=== PATIENT | male | born 1975 | race Caucasian/White ===

== ENCOUNTER → 2017-06-26 09:24 | Outpatient (CLI) | payer OTHER, SELFPAY ==
--- NOTE | 2017-06-26 13:00 | VAS_PTH ---
PATIENT: FERMÍN SUNG LOC: [facility] U#:[id number] AGE/SX: 49/M ROOM: RE06/26/[address]: Dr. Moses Alba MD : 1975 BED: DIS: SPEC #: [id number] RECD: 06/26/17 19:10 STATUS: FIORELLAElmer MEHRDAD #: [id number] GELY: 06/26/17 13:[address]: Moses Alba DEPT: SURGICAL PATHOLOGY RECD BY: Alvaro Anaya Tissues: A - Vas deferens, NOS B - Vas deferens, NOS Procedures: Surgery Specimen Level II HEADER OPERATION: Bilateral partial vasectomy PRE-OP DIAGNOSIS: Sterilization TISSUE SUBMITTED: A ? Right vas deferens, B ? Left vas deferens MICROSCOPIC DIAGNOSIS A. Right vas deferens, segmental vasectomy: Complete cross-section of vas deferens with no pathologic change. B. Left vas deferens, segmental vasectomy: Complete cross-section of vas deferens with no pathologic change. AM:laura 06/30/17 MICROSCOPIC DESCRIPTION Slides are reviewed. GROSS DESCRIPTION A - Received is one container designated right vas deferens. The specimen consists of a cylindrical segment of pink-terrazas soft tissue. The fragment measures 1.3 cm in length and 0.2 cm in maximum diameter. Serial sections do not reveal gross lesions. The specimen is serially sectioned and totally submitted in one cassette. It will be bisected at the time of embedding. B - Received is one container designated left vas deferens. The specimen consists of a cylindrical segment of pink-terrazas soft tissue. The fragment measures 1 cm in length and 0.2 cm in maximum diameter. Serial sections do not reveal gross lesions. The specimen is serially sectioned and totally submitted in one cassette. It will be bisected at the time of embedding. / SJ:laura 06/27/17 TC:4 CPT: 11223 x2
== END ==
PROVIDERS: Visit Provider Surgery
DX: Z98.52 Vasectomy status (principal)
CPT/HCPCS: 88302

== ENCOUNTER → 2017-07-10 15:20 | Outpatient (CLI) | payer OTHER, SELFPAY ==
[2017-07-11 14:05] LABS: Semen Analysis Post Vas PRESENT
== END ==
PROVIDERS: Family Provider Family Medicine; PCP Family Medicine; Visit Provider Surgery
DX: Z30.2 Encounter for sterilization (principal)
CPT/HCPCS: 89321

== ENCOUNTER → 2017-08-06 13:13 | Outpatient (CLI) | payer OTHER, SELFPAY ==
[2017-08-06 18:43] LABS: Semen Analysis Post Vas ABSENT
== END ==
PROVIDERS: Family Provider Family Medicine; PCP Family Medicine; Visit Provider Surgery
DX: Z30.2 Encounter for sterilization (principal)
CPT/HCPCS: 89321

== ENCOUNTER → 2017-10-23 15:55 | Outpatient (CLI) | payer OTHER, SELFPAY ==
[2017-10-24 10:45] LABS: Semen Analysis Post Vas ABSENT
== END ==
PROVIDERS: Family Provider Family Medicine; PCP Family Medicine; Visit Provider Family Medicine
DX: Z30.2 Encounter for sterilization (principal)
CPT/HCPCS: 89321

== ENCOUNTER 2018-01-17 16:37 | Emergency (ER) | payer SELFPAY ==
[2018-01-17 16:39] VITALS: BP 138/90; PULSE 87; RESP 17; TEMP 36.9; O2SAT 99; BMI 25.0
--- NOTE | 2018-01-17 16:53 | ED.DCSUM_ITS ---
- ER Visit Summary Date of Service: 01/17/18 Chief Complaint: Left thigh laceration History of Present Illness: The patient is a 42 M laceration left thigh 15 minutes prior to arrival. Using a utility knife cutting carpet. He is on aspirin therapy. Bleeding controlled. Tetanus unknown. History of sutures in the past. Physical Examination: General: Alert and oriented ?3, no acute distress HEENT: Normocephalic, atraumatic. Moist mucosa membranes Neck: supple, nontender. Cardiovascular: Regular rate and rhythm, no murmurs Respiratory: Normal breath sounds, symmetric, no distress Abdomen: Soft, nontender, nondistended Extremities: Nontender, no edema, pulses intact ?4 Neuro: no focal neurological deficits. Skin: Left thigh, 2 cm vertical laceration to distal thigh, subcu exposure, no foreign bodies, no active bleeding. Test Results: [] Emergency Department Course and Treatment: Patient isolated laceration left thigh. Subcutaneous exposure. Tetanus updated. Laceration repaired with a total of 2, 4 oh horizontal sutures. Good approximation. Wound care discussed. Follow-up with PCP for suture removal. Treatment Plan: [] Disposition: Discharge Impression: 1. Left thigh laceration 2. Tetanus update This note was generated with Panel[employer] dictation software. It may contain incorrect words, spelling, and punctuation that were not noted in review of the chart prior to signing ED Disposition - Plan for ED Patient: Disposition: Home or Assisted Living Chief Complaint: Laceration Diagnosis: Laceration of left thigh without complication, Tetanus toxoid vaccination administered at current visit Instructions: ED Laceration All Referrals: Issa Alba III, MD [Primary Care Provider] - 10-14 Days suture removal
[2018-01-17] MEDS: Diphth,Pertuss(Acell),Tet Vac 0.5 ML Vial IM (17:27)
== END 2018-01-17 17:39 | disposition home or self-care (01) ==
PROVIDERS: Emergency Provider Emergency Medicine; Family Provider Family Medicine; PCP Family Medicine
DX: S71.112A Laceration without foreign body, left thigh, initial encounter (principal); W26.0XXA Contact with knife, initial encounter; Y93.89 Activity, other specified; Y92.9 Unspecified place or not applicable; Y99.9 Unspecified external cause status; Z23 Encounter for immunization; Z79.82 Long term (current) use of aspirin
CPT/HCPCS: 12001; 90471; 90715; 99282

== ENCOUNTER → 2022-08-28 | Outpatient (CLI) | payer OTHER, SELFPAY ==
[2022-08-28 08:32] LABS: Mucous, Urine 0 SEEN /hpf (<or=2+); Red Blood Cells-Urine 0 SEEN /hpf (0-5); White Blood Cells 0 SEEN /hpf (0-5)
[2022-08-28 12:18] LABS: Erythrocyte Sedimentation Rate 2 mm/hr (0-20)
[2022-08-28 12:23] LABS: Color, Urine Yellow (Yellow); Glucose, Dipstick Normal (Normal); Ketone-Dipstick Negative (Negative); Leukocyte Esterase-Dipstick Negative /ul (Negative); Nitrite-Dipstick Negative (Negative); Occult Blood-Urine Negative /ul (Negative); Protein-Dipstick Negative (Negative); Specific Gravity, Urine 1.015 (1.002-1.030); Urine Bilirubin Dipstick Negative (Negative); Urine Clarity Sl. Cloudy (Clear); Urine Urobilinogen Normal (Normal)
[2022-08-28 12:29] LABS: Bacteria 1+ /hpf (None Seen); Squamous Epithelial Cells - UA 0-5 SEEN /hpf (0-5)
[2022-08-28 12:35] LABS: ALB/GLOB Ratio 1.1 RATIO (0.9-2.4); AST(SGOT) 15 U/L (15-37); Alanine Aminotransfer ALT/SGPT 26 U/L (16-61); Alkaline Phosphatase 75 U/L (45-117); Anion Gap 4 (5-15); BUN 16 mg/dL (7-18); BUN/Creat Ratio 18.5 RATIO (10-20); CRP < 2.90 mg/L (0.0-3.0); Calcium,Total 8.7 mg/dL (8.5-10.1); Chloride 106 mmol/L (98-107); Cholesterol 193 mg/dL (200); Creatinine, Serum 0.87 mg/dL (0.70-1.30); EST Glomerular Filtration Rate 101 mL/min (>60); Est Glom Filt Rate - Afr Amer 122 mL/min (>60); Globulin 3.8 g/dL (2.2-4.2); Glucose 101 mg/dL (74-106); High Density Lipoprotein 41 mg/dL; PSA,Total- Diagnostic 0.41 ng/mL (0.0-4.0); Potassium 4.3 mmol/L (3.5-5.1); Protein, Total 7.8 g/dL (6.4-8.2); Rheumatoid Factor < 10.0 IU/mL (<15); Sodium Level 137 mmol/L (136-145); Triglycerides 151 mg/dL; Very Low Density Lipoprotein 30 mg/dL (5-40)
[2022-08-28 12:39] LABS: Absolute Lymphocyte Count 2.61 X10^3/uL (0.83-4.51); Absolute Neutrophil Count 2.9 X10^3/uL (2.0-7.7); Basophil# 0.09 X10^3/uL; Basophil% 1.3 % (0-1); Eosinophil# 0.53 X10^3/uL; Eosinophils% 7.9 % (0-5); Hematocrit 45.4 % (40-54); Hemoglobin 14.5 g/dL (13.0-16.5); Lymphocyte # 2.61 X10^3/ul (0.83-4.51); Mean Corp Hgb Conc 31.9 g/dL (32-36); Mean Corpuscular Hgb 29.6 pg (27.0-32.0); Mean Corpuscular Volume 92.7 fL (80-94); Mean Platelet Vol. 10.2 fl (6.2-12.0); Monocyte# 0.56 X10^3/uL; Monocyte% 8.4 % (0-10); NRBC Flagged by Analyzer 0 % (0-5); Neutrophil # 2.88 X10^3/uL (2.7-7.7); Neutrophil % 43.1 % (47-70); Platelet Count 269 K/mm3 (150-450); RBC Distribution Width CV 12.8 % (11.6-14.6); RBC Distribution Width SD 43.9 fl (35.1-43.9); White Blood Count 6.7 K/mm3 (4.4-11.0)
[2022-08-29 12:09] LABS: CCP IgG Antibodies 3 units (0-19)
[2022-08-30 13:08] LABS: Anti-Centromere B Ab <0.2 AI (0.0-0.9); Anti-Chromatin <0.2 AI (0.0-0.9); Anti-Jo <0.2 AI (0.0-0.9); Anti-Nuclear Antibody Test Negative (.); Anti-Scleroderma-70 AB <0.2 AI (0.0-0.9); Anti-dsDNA Ab <1 IU/mL (0-9); RNP Ab <0.2 AI (0.0-0.9); SJOGREN'S Anti-SS-A test < 0.2 AI (0.0-0.9); SJOGREN'S Anti-SS-B test < 0.2 AI (0.0-0.9); Smith Ab <0.2 AI (0.0-0.9)
== END | disposition home or self-care (01) ==
PROVIDERS: PCP Internal Medicine; Referring Provider Internal Medicine; Visit Provider Internal Medicine
DX: M25.50 Pain in unspecified joint (principal); Z13.6 Encounter for screening for cardiovascular disorders; R10.31 Right lower quadrant pain
CPT/HCPCS: 36415; 80053; 80061; 81001; 84153; 85025; 85652; 86038; 86140; 86200; 86225; 86235; 86431

== ENCOUNTER 2022-10-04 09:50 | Day surgery (SDC) | payer OTHER, SELFPAY ==
[2022-10-04] VITALS (7 sets, daily range): BP systolic 105–119; BP diastolic 65–78; PULSE 71–74; RESP 16; TEMP 36.1–36.8; O2SAT 99–100; BMI 22.1
[2022-10-04] MEDS: Lactated Ringers 1,000 ML 15 ML IV (10:12)
--- NOTE | 2022-10-04 10:31 | PCM.HP.BLA ---
History and Physical Date of Admission: 10/04/22 Visit Reasons:?Abdominal Pain/C-Scope Chief Complaint: abd pain/c-scope Allergies No Known Allergies Allergy (Verified 09/19/22 08:25) Medications acetaminophen 325 mg capsule (Tylenol) 325 mg PO ONCE PRN 08/27/22 [History Confirmed 09/19/22] diclofenac sodium 75 mg tablet,delayed release 75 mg PO BID 08/27/22 [History Confirmed 09/19/22] ibuprofen 200 mg tablet 200 mg PO Q6H PRN 08/27/22 [History Confirmed 09/19/22] PFSH Medical History? Acute maxillary sinusitis, unspecified Back pain Hearing loss Knee pain Shoulder pain Surgical History? Status post vasectomy Family History?(Updated 08/27/22 @ 15:[address] Brandy Johnson MD) Father CHF (congestive heart failure)Grandfather Myocardial infarction Heart diseaseGrandfather Heart diseaseOther Diabetes Social History?(Updated 08/27/22 @ 16:[address] Brandy Johnson MD) household members:? spouse current occupational status:? 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 Former smoker quit date: 04/14/13 pack-years: 23 Electronic Cigarette Use:? not used alcohol intake:? current alcohol intake frequency: a few times a week Alcohol type: hard liquor substance use type:? marijuana what type of physical activity do you participate in:? running and weight training frequency:? 3-4 times per week do you feel safe at home:? Yes HPI HPI HPI: 47-year-old gentleman is being referred by Dr. Karishma Johnson for surgical consultation regarding right groin pain.? Written compromise surgical consult and recommendations will return to her.? By report the patient's had chronic right groin pain.? He has multiple other issues of musculoskeletal joint complaints.? I have assisted him previously on June 26, 2017 with a bilateral partial vasectomy.? Apparently the patient's previously had a diagnosis of right iliopsoas bursitis. I have information July 25, 2020 report from [facility] CT scan abdomen pelvis that demonstrated right iliopsoas bursitis.? Mild bilateral hip degenerative diseases.? A left hepatic cyst.? Also on July 17, 2020 he had had a scrotal ultrasound.? This demonstrated a 5 x 4 epididymal cyst on the right.? Small hydrocele present.? No varicoceles.? On the left a small hydrocele present with no varicoceles. The patient states that 2 years ago prior to that intervention he was pulling a tarp and was at an angle and immediately felt a discomfort in the right groin.? His major concern today is that he has been having ongoing right groin pain.? He will wake up in the morning it will be fine and after 2 hours of work it will start to ache.? He thinks that his right testicle tends to elevate when it is uncomfortable. 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 He has never had a colonoscopy.? He notes some right lower quadrant tenderness but is not sure whether that simply radiating from the groin which is what he believes. He used to be a cigarette smoker but he did stop. ROS General General: No weight change, appetite, fatigue, colon cancer, breast cancer or weakness HEENT HEENT: No difficulty swallowing, eye injury, eye surgery, swollen glands or hoarseness Endo Endocrine: No thyroid disease, diabetes mellitus, thyroid cancer, Hair loss, heat intolerance or cold intolerance Skin Skin: No rash or changing moles Musc Musculoskeletal: Yes arthritis; No back problems, rheumatoid arthritis, gout or joint pain Cardio Cardiovascular: No murmur, pacemaker, heart disease, atrial fibrillation, high blood pressure, heart attack, heart stent, palpitations, shortness of breat with exertion or chest pain Psych Psychiatric: No depression, anxiety or hearing voices Resp Respiratory: No shortness of breath, No sleep apnea, No cough, No COPD, No asthma, No emphysema and No wheezing Gastro Gastrointestinal: Yes abdominal pain, No nausea or vomiting, No diarrhea, No constipation, No blood in stool, No acid reflux, No hemorrhoids, No ulcers, No gallbladder problem and No black,tarry stools Ermias Hematologic: No blood thinners, No blood disorders, No bleeding, No anemia and No blood clots Neuro Neurologic: No system reviewed and no additional complaints, except as documented, No as per HPI, No abnormal gait, No abnormal hearing, No abnormal movements, No abnormal speech, No behavioral changes, No burning sensations, No confusion, No convulsions, No disequilibrium, No dizziness, No localized weakness, No frequent falls, No headache(s), No lack of coordination, No loss of vision, No memory loss, No numbness, No other visual disturbances, No radicular pain, No restless legs, No sensory deficit, No syncope, No tingling, No tremor(s), No weakness and No other Exam Const General: cooperative, healthy appearing, comfortable and no acute distress Nutritional Appearance: average body habitus [facility] Head: normal to inspection Eyes General: appearance normal, both eyes and all related structures Neck Neck: normal visual inspection Chest Chest palpation & inspection: normal inspection of the chest Resp Effort & Inspection: normal respiratory effort Auscultation: clear to auscultation bilaterally Cardio Rate: regular rate Rhythm: regular rhythm GI Inspection: normal to inspection Palpation: soft and no hepatosplenomegaly Other: Soft, scaphoid, mild tenderness in the right lower quadrant, difficult to appreciate whether this is radiating from the groin.? Normal bowel sounds Other: With the patient standing there is soft tissue fullness bulging of the right groin as compared to the left.? Right testicle seems slightly enlarged. Left testicle without mass.? Absolutely solid left groin with no give Right testicle slightly tender but without mass.? There is evidence of a right inguinal hernia which bulges with straining.? The patient has some mild tenderness in that area as well. Neuro General: patient alert, patient awake and patient oriented x3 Extrem General: no calf tenderness Psych Appearance: grossly normal Assessment and Plan Assessment and Plan (1) Inguinal hernia of right side without obstruction or gangrene: ?Status:?Acute (2) Screening for intestinal cancer: ?Status:?Acute ?Plan: I recommended the patient a screening colonoscopy with possible biopsy or polypectomy as indicated.? He has some mild right lower quadrant tenderness but I think this is radiation from the groin.? I have discussed with him the technique, benefit, risk, alternatives.? He has had an opportunity to ask and have questions answered.? We will schedule and proceed as noted.? I would like to have this accomplished prior to proceeding with right inguinal hernia repair. On visual inspection and clinical exam I do concur with the patient that he has a right inguinal hernia.? He is very physically active.? I propose for him a laparoscopic right inguinal hernia repair with mesh and in detail discussed technique benefit risk complications alternatives.? Clearly he is very active.? Whether he could have a residual component of bursitis or degenerative joint symptoms as well's difficult to decipher.? The patient has been made aware that I do clearly believe that he has an inguinal hernia and that I would anticipate majority relief of his symptoms though certainly cannot proclaim that all symptoms will be resolved. He has had an opportunity to ask and have questions answered.? I have instructed him we will need to have 2 weeks off of work minimum from the hernia repair and then considered light duty subsequent to that.? He is aware that we will need to see him in postoperative follow-up in the office prior to his returning to work. Copy: Dr. Karishma Alba M.D., F.A.C.S. I have examined the patient and the H&P has been reviewed. There are no clinical changes since date of exam. Moses Alba M.D., F.A.C.S.
--- NOTE | 2022-10-04 11:00 | COLBX_PTH ---
PATIENT: FERMÍN SUNG LOC: [facility] U#:[id number] AGE/SX: 47/M ROOM: RE10/04/[address]: Dr. Moses Alba MD : 1975 BED: DIS: 10/04/2022 SPEC #: [id number] RECD: 10/04/22 13:14 STATUS: SIN REChristina #: [id number] GELY: 10/04/22 11:[address]: Moses Alba DEPT: SURGICAL PATHOLOGY RECD BY: Michelle Taylor ENTERED: 10/04/22 13:36 SP TYPE: COLON BX OTHR DR: Dr. Brandy Johnson MD Tissues: A - Transverse colon B - Sigmoid colon biopsy C - Sigmoid colon biopsy D - Sigmoid colon biopsy E - Sigmoid colon biopsy F - Rectum, NOS Procedures: Surgery Specimen Level IV HEADER OPERATION: Colonoscopy with polypectomy (MAC) PRE-OP DIAGNOSIS: Screening TISSUE SUBMITTED: A - Mid transverse polyp biopsy, B - Distal sigmoid polyp #1, C - Distal sigmoid polyps #2, D - Distal sigmoid polyps #3, E - Distal sigmoid polyp #4, F - Proximal rectal polyp MICROSCOPIC DIAGNOSIS A. Mid transverse colon polyp, biopsy: Fragments of tubular adenoma. B. Distal sigmoid polyp #1, polypectomy: Fragments of hyperplastic polyp. C. Distal sigmoid polyps #2, polypectomy: Tubular adenoma. Hyperplastic polyp. D. Distal sigmoid polyps #3, polypectomy: Hyperplastic polyp. E. Distal sigmoid polyps #4, polypectomy: Hyperplastic polyp. F. Proximal rectal polyp, polypectomy: Fragments of hyperplastic polyp. SJ:laura 10/07/2022 MICROSCOPIC DESCRIPTION Slides are reviewed. GROSS DESCRIPTION A - Received in fixative is one container labeled with the patient's name and designated mid transverse polyp. The specimen consists of multiple irregular fragments of light terrazas soft tissue that in aggregate measure 0.7 x 0.5 x 0.1 cm. The specimen is totally submitted in one cassette. B - Received in fixative is one container labeled with the patient's name and designated distal sigmoid polyp. The specimen consists of multiple irregular fragments of light terrazas soft tissue that in aggregate measure 0.7 x 0.5 x 0.1 cm. The specimen is totally submitted in one cassette. C - Received in fixative is one container labeled with the patient's name and designated distal sigmoid polyp. The specimen consists of two irregular fragments of light terrazas soft tissue that in aggregate measure 0.7 x 0.3 x 0.1 cm. The specimen is totally submitted in one cassette. D - Received in fixative is one container labeled with the patient's name and designated distal sigmoid polyps. The specimen consists of one irregular fragment of light terrazas soft tissue that measures 0.6 x 0.3 x 0.1 cm. The specimen is totally submitted in one cassette. E - Received in fixative is one container labeled with the patient's name and designated distal sigmoid polyp. The specimen consists of one irregular fragment of light terrazas soft tissue that measures 0.6 x 0.5 x 0.3 cm. The specimen is totally submitted in one cassette. F - Received in fixative is one container labeled with the patient's name and designated proximal rectal polyp. The specimen consists of two irregular fragments of light terrazas soft tissue that in aggregate measure 0.6 x 0.3 x 0.1 cm. The specimen is totally submitted in one cassette. / AM:laura 10/04/2022 TC:1 CPT: 38734 x6
--- NOTE | 2022-10-04 12:22 | OP.COLON_ITS ---
Patient Name: Esa De La Cruz Procedure Date: 10/04/2022 11:36 AM Date of : 1975 Age: 47 Procedure: Colonoscopy Indications: Abdominal pain in the right lower quadrant Providers: Moses Alba MD Referring MD: Brandy Johnson Md Medicines: See the Anesthesia note for documentation of the administered medications Patient Profile: Last Colonoscopy: none. The patient's first colonoscopy is today. Complications: No immediate complications. Procedure: Pre-Anesthesia Assessment: - Prior to the procedure, a History and Physical was performed, and patient medications and allergies were reviewed. The patient's tolerance of previous anesthesia was also reviewed. The risks and benefits of the procedure and the sedation options and risks were discussed with the patient. All questions were answered, and informed consent was obtained. Prior Anticoagulants: The patient has taken no previous anticoagulant or antiplatelet agents. ASA Grade Assessment: II - A patient with mild systemic disease. After reviewing the risks and benefits, the patient was deemed in satisfactory condition to undergo the procedure. After I obtained informed consent, the scope was passed under direct vision. Throughout the procedure, the patient's blood pressure, pulse, and oxygen saturations were monitored continuously. The adult colonoscope was introduced through the anus and advanced to the cecum, identified by appendiceal orifice and ileocecal valve. The colonoscopy was somewhat difficult due to a tortuous colon. The patient tolerated the procedure well. Scope In: 11:45:09 AM Scope Withdrawal Time 0 hours 20 minutes 44 seconds Scope Out: 12:14:20 PM Total Procedure Duration Time 0 hours 29 minutes 11 seconds Findings: The perianal and digital rectal examinations were normal. A 4 mm polyp was found in the proximal transverse colon. The polyp was sessile. The polyp was removed with a cold biopsy forceps. Resection and retrieval were complete. Two sessile polyps were found in the proximal sigmoid colon. The polyps were 3 to 4 mm in size. These polyps were removed with a cold snare. Resection and retrieval were complete. Two sessile polyps were found in the proximal sigmoid colon. The polyps were 3 to 4 mm in size. These polyps were removed with a cold biopsy forceps. Resection and retrieval were complete. A 5 mm polyp was found in the proximal sigmoid colon. The polyp was sessile. The polyp was removed with a cold snare. Resection and retrieval were complete. A 5 mm polyp was found in the distal sigmoid colon. The polyp was sessile. The polyp was removed with a hot snare. Resection and retrieval were complete. A 5 mm polyp was found in the rectum. The polyp was sessile. The polyp was removed with a cold biopsy forceps. Resection and retrieval were complete. Multiple diverticula were found in the sigmoid colon. Impression: - One 4 mm polyp in the proximal transverse colon, removed with a cold biopsy forceps. Resected and retrieved. - Two 3 to 4 mm polyps in the proximal sigmoid colon, removed with a cold snare. Resected and retrieved. - Two 3 to 4 mm polyps in the proximal sigmoid colon, removed with a cold biopsy forceps. Resected and retrieved. - One 5 mm polyp in the proximal sigmoid colon, removed with a cold snare. Resected and retrieved. - One 5 mm polyp in the distal sigmoid colon, removed with a hot snare. Resected and retrieved. - One 5 mm polyp in the rectum, removed with a cold biopsy forceps. Resected and retrieved. - Diverticulosis in the sigmoid colon. Recommendation: - Discharge patient to home. - Resume previous diet. - Continue present medications. - Repeat colonoscopy in 3 years for surveillance. - Telephone my office for pathology results in 1 week. Procedure Code(s): --- Professional --- 37566, Colonoscopy, flexible; with removal of tumor(s), polyp(s), or other lesion(s) by snare technique 26291, 59, Colonoscopy, flexible; with biopsy, single or multiple Diagnosis Code(s): --- Professional --- D12.3, Benign neoplasm of transverse colon (hepatic flexure or splenic flexure) D12.5, Benign neoplasm of sigmoid colon K62.1, Rectal polyp R10.31, Right lower quadrant pain K57.30, Diverticulosis of large intestine without perforation or abscess without bleeding CPT copyright 2017 [employer]. All rights reserved. The codes documented in this report are preliminary and upon friction welding machine operator review may be revised to meet current compliance requirements. Moses Alba MD 10/04/2022 12:22:06 PM This report has been signed electronically. Number of Addenda: 0 Note Initiated On: 10/04/2022 11:36 AM
--- NOTE | 2022-10-04 12:22 | OP.CCLET_ITS ---
10/04/2022 Brandy Johnson Md Re : Colonoscopy procedure for Esa De La Cruz Dear Alxe This procedure was performed on Tuesday, October 04, 2022. My impressions and recommendations are as follows: Impressions : - One 4 mm polyp in the proximal transverse colon, removed with a cold biopsy forceps. Resected and retrieved. - Two 3 to 4 mm polyps in the proximal sigmoid colon, removed with a cold snare. Resected and retrieved. - Two 3 to 4 mm polyps in the proximal sigmoid colon, removed with a cold biopsy forceps. Resected and retrieved. - One 5 mm polyp in the proximal sigmoid colon, removed with a cold snare. Resected and retrieved. - One 5 mm polyp in the distal sigmoid colon, removed with a hot snare. Resected and retrieved. - One 5 mm polyp in the rectum, removed with a cold biopsy forceps. Resected and retrieved. - Diverticulosis in the sigmoid colon. Recommendations : - Discharge patient to home. - Resume previous diet. - Continue present medications. - Repeat colonoscopy in 3 years for surveillance. - Telephone my office for pathology results in 1 week. My findings are described in the full procedure note, which is enclosed. If I can be of further assistance, please feel free to contact me at Doctor phone number(s): Work: . Sincerely, Moses Alba MD 10/04/2022 12:22:06 PM This report has been signed electronically.
== END 2022-10-04 13:14 | disposition home or self-care (01) ==
LOC: EN 09:51 → AC 09:52
PROVIDERS: PCP Internal Medicine; Referring Provider Internal Medicine; Visit Provider Surgery
PROC: 0DJD8ZZ Inspection of Lower Intestinal Tract, Via Natural or Artificial Opening Endoscopic (ICD-10-PCS; CPT 45378; principal; 2022-10-04 10:55)
DX: Z12.11 Encounter for screening for malignant neoplasm of colon (principal); Z87.891 Personal history of nicotine dependence; K40.90 Unilateral inguinal hernia, without obstruction or gangrene, not specified as recurrent; K57.30 Diverticulosis of large intestine without perforation or abscess without bleeding; D12.3 Benign neoplasm of transverse colon; D12.5 Benign neoplasm of sigmoid colon
CPT/HCPCS: 45385; 45380; 88305; J7120; J2405

== ENCOUNTER 2022-10-24 07:53 | Day surgery (SDC) | payer OTHER, SELFPAY ==
--- NOTE | 2022-10-21 07:17 | EKG12_ITS ---
Test Reason : PREOP Blood Pressure : / mmHG Vent. Rate : 054 BPM Atrial Rate : 054 BPM P-R Int : 146 ms QRS Dur : 096 ms QT Int : 412 ms P-R-T Axes : -06 073 058 degrees QTc Int : 390 ms Sinus bradycardia Otherwise normal ECG Confirmed by WESTLEY DIOR, RHONA ([id number]), tape editor NAA SORIANO ([id number]) on 10/21/2022 1:32:50 PM Referred By: Moses Alba Confirmed By:RHONA CHRISTY MD
[2022-10-21 08:25] LABS: Hematocrit 40.7 % (40-54); Hemoglobin 13.5 g/dL (13.0-16.5); Mean Corp Hgb Conc 33.2 g/dL (32-36); Mean Corpuscular Hgb 30.1 pg (27.0-32.0); Mean Corpuscular Volume 90.8 fL (80-94); Mean Platelet Vol. 9.8 fl (6.2-12.0); Platelet Count 246 K/mm3 (150-450); RBC Distribution Width CV 13.2 % (11.6-14.6); RBC Distribution Width SD 43.8 fl (35.1-43.9); Red Blood Count 4.48 M/mm3 (4.6-6.2)
[2022-10-21 08:51] LABS: Anion Gap 2 (5-15); BUN 18 mg/dL (7-18); BUN/Creat Ratio 21.3 RATIO (10-20); Calcium,Total 8.5 mg/dL (8.5-10.1); Chloride 108 mmol/L (98-107); Creatinine, Serum 0.84 mg/dL (0.70-1.30); EST Glomerular Filtration Rate 103 mL/min (>60); Est Glom Filt Rate - Afr Amer 125 mL/min (>60); Glucose 103 mg/dL (74-106); Sodium Level 138 mmol/L (136-145)
[2022-10-24] VITALS (9 sets, daily range): BP systolic 107–127; BP diastolic 73–77; PULSE 42–82; RESP 16; TEMP 36.8–36.9; O2SAT 95–100; BMI 22.4
[2022-10-24] MEDS: Lactated Ringers 1,000 ML 15 ML IV ×2 (08:52→10:46)
--- NOTE | 2022-10-24 09:18 | PCM.HP.BLA ---
History and Physical Date of Admission: 10/24/22 Allergies No Known Allergies Allergy (Verified 09/19/22 08:25) Medications acetaminophen 325 mg capsule (Tylenol) 325 mg PO ONCE PRN 08/27/22 [History Confirmed 09/19/22] diclofenac sodium 75 mg tablet,delayed release 75 mg PO BID 08/27/22 [History Confirmed 09/19/22] ibuprofen 200 mg tablet 200 mg PO Q6H PRN 08/27/22 [History Confirmed 09/19/22] PFSH Medical History Acute maxillary sinusitis, unspecified Back pain Hearing loss Knee pain Shoulder pain Surgical History Status post vasectomy Family History (Updated 08/27/22 @ 15:[address] Brandy Johnson MD) Father CHF (congestive heart failure)Grandfather Myocardial infarction Heart diseaseGrandfather Heart diseaseOther Diabetes Social History (Updated 08/27/22 @ 16:[address] Brandy Johnson MD) household members: spouse current occupational status: employed current occupation: electric truck driver Smoking Status: Former smoker quit date: 04/14/13 pack-years: 23 Electronic Cigarette Use: not used alcohol intake: current alcohol intake frequency: a few times a week Alcohol type: hard liquor substance use type: marijuana what type of physical activity do you participate in: running and weight training frequency: 3-4 times per week do you feel safe at home: Yes HPI HPI HPI: 47-year-old gentleman is being referred by Dr. Karishma Johnson for surgical consultation regarding right groin pain. Written compromise surgical consult and recommendations will return to her. By report the patient's had chronic right groin pain. He has multiple other issues of musculoskeletal joint complaints. I have assisted him previously on June 26, 2017 with a bilateral partial vasectomy. Apparently the patient's previously had a diagnosis of right iliopsoas bursitis. I have information July 25, [address] [facility] CT scan abdomen pelvis that demonstrated right iliopsoas bursitis. Mild bilateral hip degenerative diseases. A left hepatic cyst. Also on July 17, 2020 he had had a scrotal ultrasound. This demonstrated a 5 x 4 epididymal cyst on the right. Small hydrocele present. No varicoceles. On the left a small hydrocele present with no varicoceles. The patient states that 2 years ago prior to that intervention he was pulling a tarp and was at an angle and immediately felt a discomfort in the right groin. His major concern today is that he has been having ongoing right groin pain. He will wake up in the morning it will be fine and after 2 hours of work it will start to ache. He thinks that his right testicle tends to elevate when it is uncomfortable. 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 He has never had a colonoscopy. He notes some right lower quadrant tenderness but is not sure whether that simply radiating from the groin which is what he believes. He used to be a cigarette smoker but he did stop. ROS General General: No weight change, appetite, fatigue, colon cancer, breast cancer or weakness HEENT HEENT: No difficulty swallowing, eye injury, eye surgery, swollen glands or hoarseness Endo Endocrine: No thyroid disease, diabetes mellitus, thyroid cancer, Hair loss, heat intolerance or cold intolerance Skin Skin: No rash or changing moles Musc Musculoskeletal: Yes arthritis; No back problems, rheumatoid arthritis, gout or joint pain Cardio Cardiovascular: No murmur, pacemaker, heart disease, atrial fibrillation, high blood pressure, heart attack, heart stent, palpitations, shortness of breat with exertion or chest pain Psych Psychiatric: No depression, anxiety or hearing voices Resp Respiratory: No shortness of breath, No sleep apnea, No cough, No COPD, No asthma, No emphysema and No wheezing Gastro Gastrointestinal: Yes abdominal pain, No nausea or vomiting, No diarrhea, No constipation, No blood in stool, No acid reflux, No hemorrhoids, No ulcers, No gallbladder problem and No black,tarry stools Ermias Hematologic: No blood thinners, No blood disorders, No bleeding, No anemia and No blood clots Neuro Neurologic: No system reviewed and no additional complaints, except as documented, No as per HPI, No abnormal gait, No abnormal hearing, No abnormal movements, No abnormal speech, No behavioral changes, No burning sensations, No confusion, No convulsions, No disequilibrium, No dizziness, No localized weakness, No frequent falls, No headache(s), No lack of coordination, No loss of vision, No memory loss, No numbness, No other visual disturbances, No radicular pain, No restless legs, No sensory deficit, No syncope, No tingling, No tremor(s), No weakness and No other Exam Const General: cooperative, healthy appearing, comfortable and no acute distress Nutritional Appearance: average body habitus [facility] Head: normal to inspection Eyes General: appearance normal, both eyes and all related structures Neck Neck: normal visual inspection Chest Chest palpation & inspection: normal inspection of the chest Resp Effort & Inspection: normal respiratory effort Auscultation: clear to auscultation bilaterally Cardio Rate: regular rate Rhythm: regular rhythm GI Inspection: normal to inspection Palpation: soft and no hepatosplenomegaly Other: Soft, scaphoid, mild tenderness in the right lower quadrant, difficult to appreciate whether this is radiating from the groin. Normal bowel sounds Other: With the patient standing there is soft tissue fullness bulging of the right groin as compared to the left. Right testicle seems slightly enlarged. Left testicle without mass. Absolutely solid left groin with no give Right testicle slightly tender but without mass. There is evidence of a right inguinal hernia which bulges with straining. The patient has some mild tenderness in that area as well. Neuro General: patient alert, patient awake and patient oriented x3 Extrem General: no calf tenderness Psych Appearance: grossly normal Assessment and Plan Assessment and Plan (1) Inguinal hernia of right side without obstruction or gangrene: Status: Acute (2) Screening for intestinal cancer: Status: Acute Plan: I recommended the patient a screening colonoscopy with possible biopsy or polypectomy as indicated. He has some mild right lower quadrant tenderness but I think this is radiation from the groin. I have discussed with him the technique, benefit, risk, alternatives. He has had an opportunity to ask and have questions answered. We will schedule and proceed as noted. I would like to have this accomplished prior to proceeding with right inguinal hernia repair. On visual inspection and clinical exam I do concur with the patient that he has a right inguinal hernia. He is very physically active. I propose for him a laparoscopic right inguinal hernia repair with mesh and in detail discussed technique benefit risk complications alternatives. Clearly he is very active. Whether he could have a residual component of bursitis or degenerative joint symptoms as well's difficult to decipher. The patient has been made aware that I do clearly believe that he has an inguinal hernia and that I would anticipate majority relief of his symptoms though certainly cannot proclaim that all symptoms will be resolved. He has had an opportunity to ask and have questions answered. I have instructed him we will need to have 2 weeks off of work minimum from the hernia repair and then considered light duty subsequent to that. He is aware that we will need to see him in postoperative follow-up in the office prior to his returning to work. Copy: Dr. Karishma Alba M.D., F.A.C.S. On October 04, 2022 I performed a colonoscopy for the patient and removed 6 polyps. These were a combination of tubular adenomas and hyperplastic polyps. Follow-up colonoscopy at 3 years recommended. The patient presents today for planned laparoscopic right inguinal herniorrhaphy with mesh. He is aware of the technique, benefit, risk, alternatives. He has an opportunity ask and have questions answered. We will proceed as noted. Moses Alba M.D., F.A.C.S.
--- NOTE | 2022-10-24 09:21 | DCINST_ITS ---
Discharge Instructions Procedure General Surgery Diet Discharge Diet: Light diet - advance as tolerated (if you have questions about your diet instructions, please talk to you doctor.) Activity Discharge Activity: May Not Drive (for 3-5 days or while taking narcotic pain medicine.) May shower in (days): 1 Lifting Restrictions: 10 pounds Dressing / Incision Call your doctor if your incision/area has: Continuous Slow Oozing, Sudden Increased Bleeding, Increased Pain/ Swelling, Increased Redness and Foul Smelling Discharge Call your doctor if you observe: Fever of 101 or Higher Suture Line Care: Avoid Pulling/Pushing and Avoid Pinching/Bending Additional Dressing/Incision Instructions:: Change or remove dressing in 4 days. Leave steri-strips in place for 1 week. Follow Up Care Please Follow Up With: Moses Alba MD When: Call [phone] to make an appointment to be seen in about 10 days. Test Results: Test results from this visit will be discussed in further detail at your follow- up appointment, if applicable. Discharge Plan Admission Primary Reason for Your Visit: Right inguinal hernia Attending Provider: Moses Alba Primary Care Provider: Brandy Johnson Discharge Orders/Prescriptions Prescriptions: Continued ibuprofen 200 mg tablet 200 mg PO Q6H PRN (Reason: Pain) diclofenac sodium 75 mg tablet,delayed release (DR/EC) 75 mg PO BID Patient Comments: take 1 tablet by mouth twice a day acetaminophen [Tylenol] 325 mg capsule 325 mg PO ONCE PRN (Reason: Pain) Referrals / Follow Up: Brandy Johnson MD [Primary Care Provider] - Disposition Disposition (needs filled in before D/C Order can be placed): Home, Self Care
[2022-10-24] MEDS: Cefazolin 2 GM in 0.9% Normal Saline 100 ML IV (10:21)
[2022-10-24] MEDS: Bupivacaine 0.25% 30 ML Vial (11:02)
--- NOTE | 2022-10-24 11:04 | PCM.OPRPT ---
Report of Operation Date of Procedure: 10/24/22 Pre-Operative Diagnosis: Right inguinal hernia Post-Operative Diagnosis: Indirect right inguinal hernia with cord lipoma Surgery/Procedure Performed:: Laparoscopic right inguinal herniorrhaphy Bard 3D max extra-large mesh Lot number [id number], reference [id number], expiry date 04/10/2027 Description of Surgical Findings:: Timeout informed consent was obtained. 47-year-old gentleman was taken to the operating placed spine table underwent general endotracheal intubation anesthesia. Ancef 2 g were given intravenously. The abdomen was sterilely prepped and draped. Clean procedure. 0.5% Marcaine was used as a local anesthetic. Throughout the procedure 30 cc was used. Skin sites were reanesthetized. A vertical infraumbilical incision was created holding sutures of 0 Vicryl placed varies needle inserted saline drop test performed the abdomen was insufflated with CO2 to a pressure of 10 mmHg pressure. 10 mm trocar inserted. To me laparoscope inserted. No concern trocar injuries. Both groins superficially appear to be unremarkable. 5 mm trocars were placed in the right and left lower quadrants. Under laparoscopic control a ilioinguinal nerve block was performed on the right. The peritoneum superior and lateral to the internal ring was incised and carried immediately blunt dissection was performed and upon so doing a right cord lipoma with indirect inguinal hernia was identified. The cord lipoma was completely and thoroughly inverted. The direct indirect and femoral space completely identified. A Bard 3D max extra-large mesh was placed so as to cover defect areas. It was secured in place laterally superiorly and medially with secure strap. Excellent coverage of the affected area was achieved. The peritoneum was approximated to itself using secure strap with complete obliteration to the mesh achieved. Trocars were removed after air was deflated through an antiviral valve. The fascia at the umbilicus approximated with 0 Vicryl [id number] suture. Skin edges approximated opted for Monocryl subdermal stitches. Steri-Strips Telfa OpSite dressings applied. Sponge and instrument and needle counts were reported to the surgeon to be correct. Specimens none. Drains none. Blood loss minimal. The patient was taken to the recovery room in satisfactory addition without apparent complication Moses Alba M.D., F.A.C.S. Surgeon: Moses Alba Type of Anesthesia: General and Local Anesthesiologist: Vaughn Thapa
[2022-10-24] MEDS: HYDROcodone Bitartrate/Apap 5/325 Tablet PO (12:49)
== END 2022-10-24 13:36 | disposition home or self-care (01) ==
LOC: SDC 07:54 → AC 08:01
PROVIDERS: PCP Internal Medicine; Referring Provider Surgery; Visit Provider Surgery
PROC: (CPT 49650; principal; 2022-10-24 09:40)
DX: K40.90 Unilateral inguinal hernia, without obstruction or gangrene, not specified as recurrent (principal); M16.0 Bilateral primary osteoarthritis of hip; Z87.891 Personal history of nicotine dependence
CPT/HCPCS: 49650; 00830; 36415; 80048; 85027; 93005; J7120; C1781; J2405

== ENCOUNTER → 2024-04-15 | Outpatient (CLI) | payer OTHER, SELFPAY ==
--- NOTE | 2024-04-15 16:51 | CT_ITS ---
EXAM: CT ABDOMEN AND PELVIS WITH INTRAVENOUS CONTRAST CLINICAL INDICATION: Abdominal pain -- PERFORM SCAN IN PRONE POSITION PER TECHNIQUE: Helically acquired images were obtained of the abdomen and pelvis with intravenous contrast. This CT exam was performed using one or more of the following dose reduction techniques: automated exposure control, adjustment of the mA and/or kV according to patient size, and/or use of iterative reconstruction technique. CONTRAST: Oral and amp;amp; IV Readi-CAT and amp;amp; 100mL Isovue-300 COMPARISON: No relevant prior studies available. FINDINGS: LOWER THORAX: Unremarkable. Lung bases are clear. No cardiomegaly. No significant pericardial effusion. ABDOMEN: LIVER: There is a cyst in the liver. GALLBLADDER AND BILE DUCTS: Unremarkable. No calcified gallstones. No gallbladder distention or wall edema. No intra- or extrahepatic biliary ductal dilation. PANCREAS: Unremarkable. No focal cystic or solid mass. SPLEEN: Unremarkable. Normal size without focal cystic or solid mass. ADRENALS: Unremarkable. No nodules. KIDNEYS AND URETERS: Unremarkable. Normal renal size and position. No hydronephrosis. STOMACH AND BOWEL: Unremarkable. No stomach or bowel distention. No focal inflammatory change. PELVIS: APPENDIX: No evidence of acute appendicitis. BLADDER: Unremarkable. REPRODUCTIVE: Unremarkable as visualized. No mass. ABDOMEN and PELVIS: INTRAPERITONEAL SPACE: Unremarkable. No ascites or other fluid collection. No free air. BONES/JOINTS: Unremarkable. No suspicious lytic or blastic abnormality. SOFT TISSUES: Unremarkable. No discrete abdominal or pelvic wall hernia. VASCULATURE: Unremarkable. Abdominal aorta is non-dilated. LYMPH NODES: Unremarkable. No enlarged lymph nodes. CT/Abdomen/Pelvis WITH Contrast IMPRESSION: No acute findings in the abdomen or pelvis. Electronically Signed: Johnny Morrow MD at 17:46 EST ,
== END | disposition home or self-care (01) ==
LOC: CT 16:51
PROVIDERS: PCP Internal Medicine; Referring Provider Surgery; Visit Provider Surgery
DX: R10.31 Right lower quadrant pain (principal)
CPT/HCPCS: 74177; Q9967

== ENCOUNTER → 2024-06-21 | Outpatient (CLI) | payer OTHER, SELFPAY ==
[2024-06-21 18:52] LABS: PSA,Total - Annual Screen 0.32 ng/mL (0.02-4.00)
== END | disposition home or self-care (01) ==
LOC: LAB 16:16
PROVIDERS: PCP Internal Medicine; Referring Provider Urology; Visit Provider Urology
DX: Z12.5 Encounter for screening for malignant neoplasm of prostate (principal)
CPT/HCPCS: 36415; 84153; G0103

== ENCOUNTER → 2024-12-31 | Outpatient (CLI) | payer OTHER, SELFPAY ==
--- NOTE | 2024-12-31 12:39 | RAD_ITS ---
PROCEDURE: CHEST PA AND LATERAL 12/31/2024 REASON FOR EXAM: CHEST PAIN TECHNIQUE: Procedure Code: RADCXR Modality: DX Procedure: CHEST PA AND LATERAL COMPARISON: None. FINDINGS: LUNGS AND PLEURA: The lungs are clear. No pleural effusion or pneumothorax. HEART AND MEDIASTINUM: The heart size and mediastinal contours are normal. BONES: No acute osseous abnormality. RAD/Chest PA and Lateral IMPRESSION: NEGATIVE CHEST. Reading Location: [id number]
[2024-12-31 15:22] LABS: Hematocrit 42.5 % (40-54); Hemoglobin 14.4 g/dL (13.0-16.5); Immature Granulocytes Count 0.020 X10^3/uL (0.0-0.0); Mean Corp Hgb Conc 33.9 g/dL (32-36); Mean Corpuscular Volume 88.0 fL (80-94); Mean Platelet Vol. 10.1 fl (6.2-12.0); NRBC Flagged by Analyzer 0 % (0-5); Platelet Count 255 K/mm3 (150-450); RBC Distribution Width CV 13.0 % (11.6-14.6); RBC Distribution Width SD 41.8 fl (35.1-43.9); Red Blood Count 4.83 M/mm3 (4.6-6.2); White Blood Count 7.9 K/mm3 (4.4-11.0)
[2024-12-31 15:59] LABS: Troponin T High Sensitivity 7 ng/L (<=22)
[2024-12-31 16:04] LABS: D-Dimer Quantitative (DVT/PE) < 0.27 FEU/ug/m (0.27-0.49)
== END | disposition home or self-care (01) ==
LOC: MTLAB 12:35
PROVIDERS: PCP Family Medicine; Referring Provider Family Medicine; Visit Provider Family Medicine
DX: R07.9 Chest pain, unspecified (principal)
CPT/HCPCS: 36415; 71046; 84484; 85025; 85379